=== PATIENT | male | born 1985 | race Caucasian/White ===

== ENCOUNTER 2021-09-27 02:19 | Emergency (ER) | payer OTHER ==
[~2021-09-27] VITALS: Ht 182.9 cm; Wt 101.2 kg
[2021-09-27 02:25] VITALS: BP_SYST 126
--- NOTE | 2021-09-27 02:25 | NUR ---
bib amb c/o right index swelling.seen tonight at [facility] [place] and [facility] for same reason and given rx Keflex.
--- NOTE | 2021-09-27 02:25 | NUR ---
Patient triaged and placed in waiting room. VSS and patient appears in no acute distress at this time. awaiting available bed, and MD notified of need for MSE.
--- NOTE | 2021-09-27 03:25 | NUR ---
ER examining patient in the triage.
--- NOTE | 2021-09-27 03:26 | NUR ---
Pt threatening Dr Taylor while examining him.Security was called.
[2021-09-27 03:36] VITALS: BP_SYST 121
--- NOTE | 2021-09-27 03:38 | NUR ---
Patient given written and verbal discharge instructions and verbalizes understanding. ER MD discussed with patient the results and treatment provided. Patient in stable condition. ID arm band removed. no Rx of given. Patient educated on pain management and to follow up with PMD. Pain Scale 2/10. Opportunity for questions provided and answered. Medication side effect fact sheet provided. Pt refused to sigm ACI.
--- NOTE | 2021-09-27 03:58 | NUR ---
arrived and escorted pt out to the ER.
== END 2021-09-27 03:36 | disposition home or self-care (01) ==
LOC: SED 02:19
DX: L03.011 Cellulitis of right finger (principal)
CPT/HCPCS: 99283